=== PATIENT | male | born 1970 | race Caucasian/White ===

== ENCOUNTER 2021-06-28 09:45 | Emergency (ER) | payer OTHER, SELFPAY ==
[2021-06-28 09:50] VITALS: BP 101/67; PULSE 86; RESP 20; TEMP 36.3; O2SAT 97
--- NOTE | 2021-06-28 10:05 | ED.DENTAL ---
HPI - Dental/Oral General Chief complaint: Dental/Oral Stated complaint: ear ache & lt jaw pain for 5 days Time Seen by Provider: 06/28/21 10:05 Source: patient History of Present Illness HPI Narrative: Year old male, smoker presents to the ER with pain in left lower jaw. He has a 0.5 ulcer on the medial right mandible. pain radiates to his ear and right upper neck. No fever. right ear pain Teeth map: 1. Punched out ulcer on the medial side of the right lower jaw adjoining number 31 Onset (ago): day(s) ( has been there for past 2 days.) Duration: constant Severity: moderate Relieving factors: nothing Exacerbating factors: nothing Related Data Home Medications Medication Instructions Recorded Confirmed Paxil CR 37.5 mg PO DAILY 06/28/21 06/28/21 rosuvastatin [Crestor] 20 mg PO DAILY 06/28/21 06/28/21 Allergies Allergy/AdvReac Type Severity Reaction Status Date / Time No Known Allergies Allergy Verified 06/28/21 10:07 Review of Systems Review of Systems: All systems reviewed & are unremarkable except as noted in HPI and below Constitutional: Constitutional: Reports as per HPI and Reports no additional constitutional complaints Eyes: Eyes: Reports as per HPI and Reports no additional eye complaints ENT: Reports system reviewed and no additional complaints, except as documented Comments: Painful oral ulcer right medial jaw Cardiovascular: Cardiovascular: Reports as per HPI and Reports no additional cardiovascular complaints Respiratory: Respiratory: Reports as per HPI and Reports no additional respiratory complaints Gastrointestinal: Gastrointestinal: Reports as per HPI and Reports no additional gastrointestinal complaints Genitourinary: Genitourinary: Reports no additional male genitourinary complaints and Reports as per HPI Musculoskeletal: Musculoskeletal: Reports no additional musculoskeletal complaints and Reports as per HPI Integumentary/Breasts: Skin/Breast: Reports system reviewed and no additional complaints, except as docu Neurologic: Reports system reviewed and no additional complaints, except as documented and Reports as per HPI Psychiatric: Psychiatric: Reports no additional psychiatric complaints and Reports as per HPI Endocrine: Endocrine: Reports no additional endocrine complaints and Reports as per HPI Hematologic/Lymphatic: Hematologic/Lymphatic: Reports no additional hematologic/lymphatic complaints and Reports as per HPI Allergic/Immunologic: Allergic/Immunologic: Reports no additional allergic/immunologic complaints and Reports as per HPI Exam Const: General: no acute distress Orientation/consciousness: patient oriented x3 HENMT: Head: normal to inspection Other: 0.5 cm punched-out ulcer in the right medial jaw with surrounding erythema. Tender on palpation. No dental abnormality noted. No right inguinal lymphadenopathy noted. Tenderness on placing the ear probe. Eyes: Conjunctivae: conjunctivae normal Pupils: Equal, round and reactive pupils present Neck: Neck: normal visual inspection and no lymphadenopathy Chest: Chest palpation & inspection: normal inspection of the chest and abnormal inspection of the chest Resp: Effort & Inspection: normal respiratory effort Auscultation: clear to auscultation bilaterally Cardio: Rate: regular rate Rhythm: regular rhythm GI: GI Palp: Yes Soft to palpation : Testes: Testes normal Back/Spine/Pelvis: Back: no CVA tenderness Skin: General skin exam: normal color Neuro: General: patient oriented x3 and moves all extremities Extrem: General: normal to inspection Psych: Mental Status: mental status grossly normal Affect: normal affect MDM - Dental/Oral MDM Narrative Medical decision making narrative: Solitary aphthous ulcer otitis externa Differential Diagnosis Differential diagnosis: Likely dental caries and toothache Discharge Plan Discharge Clinical Impression: Aphthous ulcer of mouth Otit
[2021-06-28 10:28] VITALS: BP 101/67; PULSE 86; RESP 20; TEMP 36.4; O2SAT 97
== END 2021-06-28 10:38 | disposition home or self-care (01) ==
PROVIDERS: Emergency Provider Internal Medicine Critical Care Medicine
DX: K12.1 Other forms of stomatitis (principal); H60.501 Unspecified acute noninfective otitis externa, right ear
CPT/HCPCS: 99283

== ENCOUNTER 2023-08-21 10:15 | Emergency (ER) | payer OTHER, SELFPAY ==
--- NOTE | ~2023-08-21 | XR_ITS ---
EXAMINATION: XR chest 1V portable DATE: 08/21/2023 11:10 INDICATION: Shortness of breath. TECHNIQUE: A single frontal view of the chest was obtained. COMPARISON: None. FINDINGS: There is no pneumonia, pleural effusion, or pneumothorax. The heart size is normal. IMPRESSION: 1. No acute cardiopulmonary disease. Reviewed, dictated and finalized at location A.
--- NOTE | ~2023-08-21 | CT_ITS ---
EXAMINATION: CT elbow RT wo con DATE: 08/21/2023 11:10 INDICATION: Right elbow pain and swelling. TECHNIQUE: Computed tomography (CT) of the right elbow was performed without intravenous contrast. Au tomated exposure control and iterative reconstruction technique were employed. The dose-length produc t was 470.64 mGy-cm. COMPARISON: None FINDINGS: Bone alignment is normal. No fracture. There is a cortical erosion of olecranon. 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 No elbow joint effusion. There is p osterior subcutaneous edema. No abscess. There is a skin defect at the posterior elbow. IMPRESSION: 1. Skin defect at the posterior elbow with a cortical erosion of the olecranon, consistent with osteo myelitis. Reviewed, dictated and finalized at location A. IMPRESSION: 1. Skin defect at the posterior elbow with a cortical erosion of the olecranon, consistent with osteomyelitis.
[2023-08-21 10:15] VITALS: BP 101/74; PULSE 74; RESP 18; TEMP 36.5; O2SAT 98
--- NOTE | 2023-08-21 10:31 | ED.SKABFB ---
HPI - Skin/Abscess/Foreign Bdy General Chief complaint: Skin/Abscess/Foreign Body Stated complaint: elbow pain Time Seen by Provider: 08/21/23 10:31 Source: patient Mode of arrival: ambulatory Limitations: no limitations History of Present Illness HPI narrative: 53-year-old male diagnosed with scleroderma on hydroxychloroquine and prednisone 10 mg presents to the ER with-- right elbow swelling with a draining sinus. The elbow is erythematous and tender on palpation. Has decreased range of motion. Has had this worked for a while but for the past 3 days it has become more painful and is draining. No fever or chills. No trauma MD complaint: abscess/boil ( right elbow cellulitis) Onset (ago): day(s) ( 3 days) Tetanus up to date: no Location: RUE ( right elbow) Severity: severe Quality: aching Pain Consistency: constant Relieving factors: none Exacerbating factors: none Related Data Home Medications Medication Instructions Recorded Confirmed hydroxychloroquine 200 mg tablet 200 mg DAILY 08/21/23 08/21/23 (Plaquenil) paroxetine HCl 37.5 mg 37.5 mg PO DAILY 08/21/23 08/21/23 tablet,extended release 24 hr prednisone 5 mg tablet 5 mg PO DAILY 08/21/23 08/21/23 Allergies Allergy/AdvReac Type Severity Reaction Status Date / Time No Known Allergies Allergy Verified 08/21/23 10:21 Review of Systems Review of Systems: All systems reviewed & are unremarkable except as noted in HPI and below Constitutional: Constitutional: Reports as per HPI and Reports no additional constitutional complaints Eyes: Eyes: Reports as per HPI and Reports no additional eye complaints ENT: Reports system reviewed and no additional complaints, except as documented and Reports as per HPI Cardiovascular: Cardiovascular: Reports as per HPI and Reports no additional cardiovascular complaints Respiratory: Respiratory: Reports as per HPI and Reports no additional respiratory complaints Gastrointestinal: Gastrointestinal: Reports as per HPI and Reports no additional gastrointestinal complaints Comments: history of GERD Genitourinary: Genitourinary: Reports no additional male genitourinary complaints Musculoskeletal: Musculoskeletal: Reports as per HPI Comments: chronic joint pains with inability to extend his right elbow Integumentary/Breasts: Comments: skin has pigmentation is firm on palpation and talked incident places. Neurologic: Reports system reviewed and no additional complaints, except as documented and Reports as per HPI Endocrine: Endocrine: Reports no additional endocrine complaints and Reports as per HPI Hematologic/Lymphatic: Hematologic/Lymphatic: Reports no additional hematologic/lymphatic complaints and Reports as per HPI Allergic/Immunologic: Allergic/Immunologic: Reports no additional allergic/immunologic complaints and Reports as per HPI [facility] Social History Social History (Updated 08/21/23 @ 12:34 by Hardy Steve MD) Social History: smoker Exam Narrative: vital stable. Afebrile Const: General: ill appearing Nutritional Appearance: thin Orientation/consciousness: patient oriented x3 Limitations: no limitations HENMT: Head: normal to inspection Ears: external ears normal Face/Nose/Sinus: Normal external nose present Face and sinus: normal facial exam Mouth: Yes Normal oral and palatal mucosa present Throat: posterior oropharynx normal Eyes: Conjunctivae: conjunctivae normal Pupils: Equal, round and reactive pupils present EOM: EOMs intact bilaterally Direct Ophthalmoscopy: no photophobia Neck: Neck: normal visual inspection, no lymphadenopathy and no meningeal signs Chest: Chest palpation & inspection: normal inspection of the chest Resp: Effort & Inspection: normal respiratory effort and labored Auscultation: clear to auscultation bilaterally Cardio: Rate: regular rate Rhythm: regular rhythm GI: Auscultation: normal bowel sounds : General: Ye
[2023-08-21 10:58] LABS: Basophils Absolute Auto 0.06 K/mm3 (0.00-0.10); Basophils Percent Auto 0.5 % (0.0-1.0); Eosinophils Absolute Auto 0.18 K/mm3 (0.02-0.50); Eosinophils Percent Auto 1.5 % (1.0-6.0); Hematocrit 43.1 % (40.0-54.0); Immature Granulocyte Absolute 0.05 K/mm3 (0.00-0.00); Immature Granulocyte Percent A 0.4 % (0.0-0.0); Lymphocytes Absolute Auto 2.08 K/mm3 (1.10-4.50); Lymphocytes Percent Auto 17.9 % (18.0-42.0); Mean Corpuscular HGB Conc 32.5 g/dL (32-36); Mean Corpuscular Hemoglobin 30.6 pg (27.0-31.0); Mean Corpuscular Volume 94.3 fL (78.0-102.0); Mean Platelet Volume 10.9 fl (8.7-11.0); Monocytes Absolute Auto 0.87 K/mm3 (0.10-0.90); Monocytes Percent Auto 7.5 % (2.0-11.0); Neutrophils Absolute Auto 8.38 K/mm3 (1.70-7.20); Neutrophils Percent Auto 72.2 % (50.0-70.0); Platelet Count Result 221 K/mm3 (150-420); Red Blood Count 4.57 M/mm3 (4.70-6.10); Red Cell Distribution Width 13.3 % (11.6-14.4); White Blood Count 11.6 K/mm3 (4.8-10.8)
[2023-08-21] MEDS: TETANUS,DIPHTHERIA,AC PERTUSSIS ADULT 0.5 ML (ADACEL) IM (11:15)
[2023-08-21 11:17] LABS: Lactic Acid Reflex 0.6 mmol/L (0.4-2.0)
[2023-08-21 11:23] LABS: Alanine Aminotransferase 19 U/L (16-63); Albumin Level 3.7 g/dL (3.4-5.0); Alkaline Phosphatase 48 U/L (46-116); Anion Gap 8 mmol/L (4-12); Aspartate Amino Transferase 14 U/L (15-37); Bilirubin,Total 0.4 mg/dL (0.00-1.00); Blood Urea Nitrogen 19 mg/dL (7-18); Calcium 9.1 mg/dL (8.5-10.1); Carbon Dioxide 28 mmol/L (21-32); Chloride 101 mmol/L (98-108); Creatine Kinase 72 U/L (39-308); Estimated CRCL calculation 64 ml/min; Estimated Glomerular Filt Rate > 60; Glucose 84 mg/dL (70-99); Osmolality Calculated 285 mOsm/kg (285-295); Sodium 137 mmol/L (136-145); Total Protein 6.6 g/dL (6.4-8.2)
--- NOTE | 2023-08-21 11:25 | PC.NURSE ---
PT HAS RETURNED FROM CT, PROVIDED URINE SPECIMEN, AND MEDICATIONS WERE ADMINISTERED WITHOUT DIFFICULTY. PT AMBULATORY OUTSIDE TO CALL HIS WORK AND RETURNED TO EXAM ROOM. PT IS AWAITING RESULTS AT THIS TIME. WILL CONTINUE TO MONITOR.
[2023-08-21 11:27] LABS: Appearance Urine Clear (Clear); Bilirubin Urine Negative (Negative); Blood Urine Negative (Negative); Color Urine Light Yellow (Yellow); Glucose Urine UA Negative (Negative); Ketones Urine Negative (Negative); Leukocyte Esterase Ur Negative LEU/UL (Negative); Nitrate Urine Negative (Negative); Protein Urine Negative (Negative); Urobilinogen Urine 0.2 mg/dL (0.2-1.0)
[2023-08-21 11:28] LABS: Uric Acid 4.6 mg/dL (3.5-7.2)
[2023-08-21 11:54] LABS: Add Urine Microscopic? NO
--- NOTE | 2023-08-21 12:13 | PC.NURSE ---
PT IS AWAITING RETURN CALL FROM [facility] AT THIS TIME. NAD NOTED. PT IS AWARE OF PLAN OF CARE. WILL CONTINUE TO MONITOR.
[2023-08-21 13:18] VITALS: BP 127/79; PULSE 72; RESP 16
--- NOTE | 2023-08-21 13:22 | PC.NURSE ---
PT IS UPDATED ON STATUS. PT CONTINUES TO AWAIT RETURN CALLS FROM [facility] AND [facility]. WILL CONTINUE TO MONITOR.
--- NOTE | 2023-08-21 14:38 | PC.NURSE ---
NO CHANGE IN PT STATUS, HE CONTINUES TO AWAIT RETURN CALL FOR ACCEPTANCE TO TRANSFER. WILL CONTINUE TO MONITOR.
[2023-08-21 15:30] VITALS: BP 122/70; PULSE 70; RESP 18; O2SAT 98
--- NOTE | 2023-08-21 15:30 | PC.NURSE ---
PT STATES HE IS NOT STAYING IN THE ER FOR AN UNKNOWN AMOUNT OF TIME, HE HAS THINGS HE NEEDS TO GET DONE. PT IS AWARE THAT HE HAS BEEN ACCEPTED TO [place], IS ON A WAIT LIST. PT REPORTS HE WOULD LIKE TO LEAVE. ERP HAS SPOKEN WITH PT AND HE IS TO SIGN OUT AMA. PT VERBALIZED UNDERSTANDING OF THE IMPORTANCE TO GET TREATMENT FOR OSTEOMYELITIS AND THAT IF HE DOES NOT HE RUNS THE RISK OF AMPUTATION AND/OR . PT SIGNS AMA FORM. RADIOLOGY DISC WAS PROVIDED TO PT, WELL INSTRUCTIONS, ABX RX. ADVISED PT TO SEEK MEDICAL HELP WITH PMD OR ANOTHER FACILITY.
--- NOTE | 2023-08-27 13:11 | PC.NURSE ---
FINAL BLOOD CULTURE RESULTS X2: NO GROWTH AFTER 5 DAYS
== END 2023-08-21 15:30 | disposition left against medical advice (07) ==
PROVIDERS: Emergency Provider Internal Medicine Critical Care Medicine
DX: M86.9 Osteomyelitis, unspecified (principal); L03.90 Cellulitis, unspecified; Z23 Encounter for immunization
CPT/HCPCS: 36415; 71045; 73200; 80053; 81003; 82550; 83605; 84550; 85025; 87040; 90471; 90715; 99284